=== PATIENT | male | born 1995 | race Caucasian/White ===

== ENCOUNTER 2016-10-26 14:44 | Emergency (ER) | payer OTHER ==
[~2016-10-26] VITALS: Ht 180.3 cm; Wt 77.1 kg
[2016-10-26 15:17] LABS: Basophils # (auto) 0.1 uL; Basophils % (auto) 0.4 % (0.0-2.0); Eosinophils # (auto) 0 uL; Hematocrit 41.6 % (41.0-53.0); Hemoglobin 14.4 g/dL (13.5-17.5); Lymphocytes # (auto) 0.9 uL; Lymphocytes % (auto) 7.8 % (10.0-50.0); Mean Corpuscular Hemoglobin 30.1 pg (28.0-32.0); Mean Corpuscular Hgb Conc. 34.7 g/dL (32.0-36.0); Mean Corpuscular Volume 86.9 fL (80.0-100.0); Mean Platelet Volume 9.8 fL (7.4-10.4); Monocytes # (auto) 0.8 uL; Monocytes % (auto) 6.6 % (0.0-12.0); Neutrophils # (auto) 10.2 uL; Neutrophils % (auto) 85.2 % (37.0-80.0); Platelet Count (auto) 271 10^3/uL (140-450); Red Cell Distribution Width 14.6 % (11.6-16.0)
[2016-10-26 15:29] VITALS: BP 114/81
[2016-10-26 15:41] LABS: Calcium 9.4 mg/dL (8.5-10.1); Potassium 3.5 mmol/L (3.5-5.1)
[2016-10-26 15:42] LABS: Bilirubin, Total 0.3 mg/dL (0.2-1.0); Total Protein 8.6 g/dL (6.4-8.2)
[2016-10-26] MEDS ORDERED: SODIUM CHLORIDE 0.9% 1,000 ML IV ONE ×2 (16:15)
[2016-10-26] MEDS ORDERED: ONDANSETRON HCL 4 MG/2 ML VIAL IV ONE (16:15)
[2016-10-26 16:33] LABS: Urine Bilirubin Negative (Negative); Urine Blood Negative /uL (Negative); Urine Color Colorless (Yellow); Urine Glucose Normal (Normal); Urine Ketone Negative (Negative); Urine Nitrite Negative (Negative); Urine RBC <1 /hpf (0 - 3); Urine Urobilinogen Normal (Negative); Urine pH 6.5 (5.0-8.0)
[2016-10-26 16:34] LABS: Amylase 80 U/L (25-115)
[2016-10-26] MEDS ORDERED: METOPROLOL TARTRATE 1MG/1ML-5ML VIAL IV ONE (17:15)
== END 2016-10-26 18:03 | disposition left against medical advice (07) ==
LOC: ER 15:07
DX: R00.2 Palpitations (principal); E86.0 Dehydration; F15.10 Other stimulant abuse, uncomplicated; Z53.29 Procedure and treatment not carried out because of patient's decision for other reasons
CPT/HCPCS: 36415; 80053; 80307; 80320; 81001; 82150; 83690; 84484; 85025; 93005; 96361; 96374; 96375; 99291; J2405

== ENCOUNTER 2016-10-27 21:46 | Emergency (ER) | payer OTHER ==
[~2016-10-27] VITALS: Ht 180.3 cm; Wt 77.1 kg
[2016-10-27 22:06] VITALS: BP 154/90
== END 2016-10-28 03:00 | disposition left against medical advice (07) ==
LOC: EDBD 21:46 → EDSEX 21:46 → ER 21:50
DX: R55 Syncope and collapse (principal); Z53.21 Procedure and treatment not carried out due to patient leaving prior to being seen by health care provider

== ENCOUNTER 2017-06-23 10:34 | Emergency (ER) | payer OTHER, MEDICAID ==
[~2017-06-23] VITALS: Ht 180.3 cm; Wt 77.1 kg
[2017-06-23 13:34] VITALS: BP 124/72
== END 2017-06-23 14:54 | disposition home or self-care (01) ==
LOC: EDBD 10:34 → ER 10:34
DX: S02.82XA Fracture of other specified skull and facial bones, left side, initial encounter for closed fracture (principal); Y08.89XA Assault by other specified means, initial encounter; Y93.89 Activity, other specified; Y92.89 Other specified places as the place of occurrence of the external cause; Y99.8 Other external cause status
CPT/HCPCS: 70450; 70486; 72125

== ENCOUNTER 2017-10-03 10:48 | Emergency (ER) | payer OTHER ==
[~2017-10-03] VITALS: Ht 177.8 cm; Wt 78.9 kg
[2017-10-03 10:57] VITALS: BP 135/85
[2017-10-03] MEDS ORDERED: KETOROLAC TROMETH 60MG/2ML VIAL IM ONE (12:15)
== END 2017-10-03 12:35 | disposition home or self-care (01) ==
LOC: ER 10:48
DX: S02.621A Fracture of subcondylar process of right mandible, initial encounter for closed fracture (principal); Z88.8 Allergy status to other drugs, medicaments and biological substances; R42 Dizziness and giddiness; Y08.89XA Assault by other specified means, initial encounter; Y93.89 Activity, other specified; Y99.8 Other external cause status; Y92.89 Other specified places as the place of occurrence of the external cause
CPT/HCPCS: 70110; 70450; 99284; J1885

== ENCOUNTER 2018-03-27 20:04 | Emergency (ER) | payer OTHER, MEDICAID ==
[~2018-03-27] VITALS: Ht 180.3 cm; Wt 79.4 kg
[2018-03-27 20:24] LABS: Basophils # (auto) 0 uL; Basophils % (auto) 0.7 % (0.0-2.0); Eosinophils # (auto) 0.1 uL; Eosinophils % (auto) 1.4 % (0.0-7.0); Hemoglobin 16.9 g/dL (13.5-17.5); Lymphocytes # (auto) 1.9 uL; Lymphocytes % (auto) 27.3 % (10.0-50.0); Mean Corpuscular Hemoglobin 31.2 pg (28.0-32.0); Mean Corpuscular Hgb Conc. 34.4 g/dL (32.0-36.0); Mean Corpuscular Volume 90.7 fL (80.0-100.0); Monocytes # (auto) 0.5 uL; Monocytes % (auto) 7.7 % (0.0-12.0); Neutrophils # (auto) 4.4 uL; Neutrophils % (auto) 62.9 % (37.0-80.0); Nucleated Red Blood Cells % 0.1 %; Platelet Count (auto) 218 10^3/uL (140-450); Red Cell Distribution Width 14.1 % (11.8-14.3)
[2018-03-27] MEDS ORDERED: SODIUM CHLORIDE 0.9% 1,000 ML IV ONE (20:30)
[2018-03-27] MEDS ORDERED: EPINEPHrine HCL 1 MG/1 ML AMP SC ONE (20:30)
[2018-03-27] MEDS ORDERED: diphenhdrAMINE HCL 50 MG/1 ML VL IV ONE (20:30)
[2018-03-27] MEDS ORDERED: methylPREDNISolone SOD SUCC 125 MG/2 ML VL IV ONE (20:30)
[2018-03-27] MEDS ORDERED: FAMOTIDINE (10MG/ML) 2ML VL IV ONE (20:30)
[2018-03-27 20:38] LABS: Albumin 4.5 g/dL (3.4-5.0); BUN/Creatinine Ratio 9.2; Calcium 9.6 mg/dL (8.5-10.1); Potassium 3.6 mmol/L (3.5-5.1)
[2018-03-27 20:40] LABS: Bilirubin, Total 0.5 mg/dL (0.2-1.0); Total Protein 8.9 g/dL (6.4-8.2)
[2018-03-27] MEDS ORDERED: diphenhdrAMINE HCL 25 MG CAP PO ONE (20:45)
[2018-03-27 22:42] VITALS: BP 135/73
== END 2018-03-27 23:41 | disposition home or self-care (01) ==
LOC: ER 20:04
DX: T78.3XXA Angioneurotic edema, initial encounter (principal); Z91.010 Allergy to peanuts; F12.10 Cannabis abuse, uncomplicated
CPT/HCPCS: 36415; 80053; 85025; 96372; 96374; 96375; 99284; J0171; J2930; J3490; J7030

== ENCOUNTER → 2020-01-11 | Emergency (ER) | payer OTHER, MEDICAID ==
[~2020-01-11] VITALS: Ht 180.3 cm; Wt 72.6 kg
[~2020-01-11] MED LIST: MORPHINE SULFATE 4 MG/ML SYR/VIAL IV ONE; ONDANSETRON HCL 4 MG/2 ML VIAL IV ONE; PANTOPRAZOLE 40 MG/10 ML VIAL INJ IV STA; SODIUM CHLORIDE 0.9% 1,000 ML IVB ONE
[2020-01-11 18:10] LABS: Basophils # (auto) 0 10 ^3/uL (0-0.2); Basophils % (auto) 0.6 % (0.0-2.0); Eosinophils # (auto) 0.1 10 ^3/uL (0-0.8); Eosinophils % (auto) 0.9 % (0.0-7.0); Hematocrit 49.2 % (41.0-53.0); Hemoglobin 16.1 g/dL (13.5-17.5); Lymphocytes % (auto) 17.3 % (10.0-50.0); Mean Corpuscular Hemoglobin 29.5 pg (28.0-32.0); Mean Corpuscular Hgb Conc. 32.6 g/dL (32.0-36.0); Mean Corpuscular Volume 90.4 fL (80.0-100.0); Monocytes # (auto) 0.3 10 ^3/uL (0-1.3); Monocytes % (auto) 5.6 % (0.0-12.0); Neutrophils # (auto) 4.4 10 ^3/uL (1.6-8.6); Neutrophils % (auto) 75.6 % (37.0-80.0); Nucleated Red Blood Cells % 0.3 %; Platelet Count (auto) 211 10^3/uL (140-450); Red Blood Cells 5.45 10^6/uL (4.5-5.90); Red Cell Distribution Width 13.8 % (11.8-14.3); White Blood Cell 5.8 10^3/uL (4.4-10.8)
[2020-01-11 18:16] VITALS: BP 136/86
[2020-01-11 18:22] LABS: Albumin 4.5 g/dL (3.4-5.0); BUN/Creatinine Ratio 12.4; Calcium 9.5 mg/dL (8.5-10.1); Potassium 3.8 mmol/L (3.5-5.1)
[2020-01-11 18:25] LABS: Bilirubin, Total 0.7 mg/dL (0.2-1.0)
[2020-01-11 18:55] LABS: Urine WBC None Seen /hpf (0 - 3)
[2020-01-11 19:13] LABS: Urine Bacteria NONE SEEN /hpf (None Seen); Urine Blood Negative /uL (Negative); Urine Specific Gravity 1.006 (1.001-1.035)
== END | disposition home or self-care (01) ==
LOC: ER 16:31
DX: K29.70 Gastritis, unspecified, without bleeding (principal)
CPT/HCPCS: 36415; 74176; 80053; 81001; 82150; 83690; 85025; 96361; 96374; 96375; 99284; C9113; J2270; J2405; J7030

== ENCOUNTER 2020-06-23 18:39 | Emergency (ER) | payer OTHER, MEDICAID ==
[~2020-06-23] VITALS: Ht 180.3 cm; Wt 72.6 kg
[2020-06-23] MEDS ORDERED: SODIUM CHLORIDE 0.9% 1,000 ML IV ONE ×2 (21:15→23:30)
[2020-06-23 22:09] LABS: Hematocrit 42.9 % (41.0-53.0); Mean Corpuscular Hemoglobin 30.9 pg (28.0-32.0); Mean Corpuscular Hgb Conc. 34.9 g/dL (32.0-36.0); Mean Corpuscular Volume 88.6 fL (80.0-100.0); Platelet Count (auto) 149 10^3/uL (140-450); Red Blood Cells 4.84 10^6/uL (4.5-5.90); Red Cell Distribution Width 14.9 % (11.8-14.3); White Blood Cell 11.5 10^3/uL (4.4-10.8)
[2020-06-23 22:16] LABS: Urine Bacteria FEW /hpf (None Seen); Urine Blood Negative /uL (Negative); Urine Specific Gravity 1.013 (1.001-1.035); Urine WBC 1 /hpf (0 - 3)
[2020-06-23 22:32] LABS: Potassium 5.4 mmol/L (3.5-5.1)
[2020-06-23 22:34] LABS: Band Neutrophils % (manual) 0; Basophils % (manual) 0 (0.0-2.0); Blast Cells 0; Eosinophils % (manual) 0 (0-7); Metamyelocytes % 0; Myelocytes % 0; Promyelocytes % 0
[2020-06-23 22:39] LABS: Albumin 3.8 g/dL (3.4-5.0); Bilirubin, Total 2.5 mg/dL (0.2-1.0)
[2020-06-23 22:53] LABS: Lymphocytes % (manual) 57 (10.0-50.0); Monocytes % (manual) 7 (0-12); Reactive Lymphocytes 10
[2020-06-23] MEDS ORDERED: cefTRIAXone 1GM/50ML D5W 50 ML IV ONE (23:00)
[2020-06-24 03:09] VITALS: BP 137/82
[2020-06-24 03:42] LABS: Albumin 3.5 g/dL (3.4-5.0); Calcium 8.5 mg/dL (8.5-10.1)
[2020-06-24 03:46] LABS: BUN/Creatinine Ratio 8.1; Bilirubin, Total 2.2 mg/dL (0.2-1.0); Total Protein 8.6 g/dL (6.4-8.2)
== END 2020-06-24 03:21 | disposition home or self-care (01) ==
LOC: ER 18:39
DX: E86.0 Dehydration (principal); B27.90 Infectious mononucleosis, unspecified without complication; R16.1 Splenomegaly, not elsewhere classified; R94.5 Abnormal results of liver function studies; Z20.822 Contact with and (suspected) exposure to COVID-19
CPT/HCPCS: 36415; 74176; 80053; 81001; 82550; 83874; 85007; 85027; 86308; 87426; 96361; 96365; 99284; C9803; J0696; J7030; U0003

== ENCOUNTER 2020-08-30 19:28 | Emergency (ER) | payer MEDICAID, OTHER ==
[~2020-08-30] VITALS: Ht 180.3 cm; Wt 77.1 kg
[2020-08-30 20:13] LABS: Basophils # (auto) 0 10 ^3/uL (0-0.2); Basophils % (auto) 0.5 % (0.0-2.0); Eosinophils # (auto) 0.1 10 ^3/uL (0-0.8); Eosinophils % (auto) 0.9 % (0.0-7.0); Hematocrit 44.3 % (41.0-53.0); Hemoglobin 15.2 g/dL (13.5-17.5); Lymphocytes # (auto) 1.2 10 ^3/uL (0.4-5.4); Lymphocytes % (auto) 21.6 % (10.0-50.0); Mean Corpuscular Hemoglobin 30.4 pg (28.0-32.0); Mean Corpuscular Hgb Conc. 34.4 g/dL (32.0-36.0); Mean Corpuscular Volume 88.4 fL (80.0-100.0); Monocytes # (auto) 0.3 10 ^3/uL (0-1.3); Monocytes % (auto) 5.8 % (0.0-12.0); Neutrophils % (auto) 71.2 % (37.0-80.0); Nucleated Red Blood Cells % 0.2 %; Platelet Count (auto) 185 10^3/uL (140-450); Red Blood Cells 5.01 10^6/uL (4.5-5.90); Red Cell Distribution Width 12.9 % (11.8-14.3); White Blood Cell 5.6 10^3/uL (4.4-10.8)
[2020-08-30 20:26] LABS: INR 1.05 (0.9-1.15)
[2020-08-30 20:32] LABS: Albumin 4.4 g/dL (3.4-5.0); Calcium 9.3 mg/dL (8.5-10.1); Magnesium 2.3 mg/dL (1.6-2.6); Potassium 3.6 mmol/L (3.5-5.1)
[2020-08-30 20:37] LABS: BUN/Creatinine Ratio 12.3; Bilirubin, Total 0.5 mg/dL (0.2-1.0); Total Protein 8.8 g/dL (6.4-8.2)
[2020-08-30 21:26] LABS: Urine Bacteria NONE SEEN /hpf (None Seen); Urine Blood Negative /uL (Negative); Urine Specific Gravity 1.001 (1.001-1.035); Urine WBC <1 /hpf (0 - 3)
[2020-08-30 22:15] VITALS: BP 131/79
== END 2020-08-30 22:25 | disposition home or self-care (01) ==
LOC: ER 19:29
DX: R10.9 Unspecified abdominal pain (principal)
CPT/HCPCS: 36415; 80053; 81001; 83605; 83690; 83735; 85025; 85610